=== PATIENT | male | born 1995 | race African-American/Black ===

== ENCOUNTER 2016-10-20 22:56 | Emergency (ER) | payer OTHER ==
--- NOTE | 2016-10-20 23:06 | ED Physician Documentation ---
PD HPI UPPER EXT INJURY - Stated complaint Stated Complaint: LT WRIST INJURY - History obtained from History obtained from: Patient - History of Present Illness Location: Left, Wrist Type of injury: Fall (playing basketball, dunked a ball and then fell backward when he tripped landing the jump. Injury to the wrist; denies other injury.) Where injury occurred: Other (he is at a camp or such for the week here at [facility].) Timing - details: Abrupt onset, Still present Improved by: Rest Worsened by: Moving, Palpating Associated symptoms: Swelling. No: Weakness, Numbness Similar symptoms before: Has not had sx before Recently seen: Not recently seen Review of Systems GI: denies: Nausea, Vomiting Skin: denies: Abrasion (s), Laceration (s) Neurologic: denies: Focal weakness (but wrist hurts with finger movement so not doing it), Numbness, Headache, Head injury PD PAST MEDICAL HISTORY - Past Medical History Cardiovascular: None Respiratory: None Neuro: None Endocrine/Autoimmune: None Musculoskeletal: None - Present Medications Home Medications: Ambulatory Orders Medication Instructions Recorded Confirmed Hydrocodone/Acetaminophen [Branford 1 each PO Q6H PRN #20 tablet 10/21/16 5-325 Tablet] - Allergies Allergies/Adverse Reactions: Allergies Allergy/AdvReac Type Severity Reaction Status Date / Time No Known Drug Allergies Allergy Verified 10/20/16 23:22 PD ED PE NORMAL - Vitals Vital signs reviewed: Yes - General General: Alert and oriented X 3, No acute distress, Well developed/nourished - HEENT HEENT: Atraumatic - Neck Neck: Supple, no meningeal sign, No bony TTP - Respiratory Respiratory: Other (no chestwall tenderness) - Abdomen Abdomen: Soft, Non tender - Back Back: No spinal TTP - Derm Derm: Normal color, Warm and dry - Extremities Extremities: Other (left wrist with tenderness, decreased ROM due to pain, and some swelling dorsal distal rad/ulnar area. Normal sensation, color, cap refill in fingers. Able to move fingers, but it does cause pain in wrist. ) - Neuro Neuro: Alert and oriented X 3, No motor deficit, No sensory deficit, Normal speech Results - Vitals Vitals: Vital Signs - 24 hr 10/20/16 10/21/16 23:00 00:45 Temperature 37.2 C 37.0 C Heart Rate 111 H 96 Respiratory 20 15 Rate Blood Pressure 136/109 H 125/67 O2 Saturation 100 99 Oxygen O2 Source Room air - Rads (name of study) Wrist xray Radiology: Prelim report reviewed, EMP read contemporaneously Procedures - Splint (location) left wrist Splint applied by: Tech Type of splint: Fiberglass, Sugar tong Other: Patient tolerated well, No complications, Neurovascular intact, Sling provided PD MEDICAL DECISION MAKING - ED course Complexity details: reviewed results, considered differential (fracture with just 10-15 degree dorsal tilt and some impaction. Does not need immediate reduction and might be close enough for healing. Splinted now and to f/u with Ortho. He is at camp on [facility] through end of week and no PMD in [place]. Given Ortho referral for here, to see if can get cast/treatment in 3 days. Hematoma block with 5 ml Marcaine done with reasonable improvement in pain. Oral meds given too. ), d/w patient Departure - Departure Disposition: Home, Self Care Clinical Impression: Colles' fracture of left radius Qualifiers: Encounter type: initial encounter Fracture type: closed Qualified Code(s): S52.532A - Colles' fracture of left radius, initial encounter for closed fracture Condition: Stable Record reviewed to determine appropriate education?: Yes Instructions: ED Fx Colles Wrist No Redu Requ Follow-Up: Denilson Melara MD [Provider Admit Priv/Credential] - Prescriptions: Hydrocodone/Acetaminophen [Branford 5-325 Tablet] 1 each PO Q6H PRN #20 tablet PRN Reason: Pain Comments: Splint for the wrist and elevate/ice it often. Sling to help support the arm. Ibuprofen or Naproxen twice daily for a week. Add Tylenol or hydrocodone as needed for pain. Follow up with Orthopedics later this week or next week, call tomorrow for appt. The position of the fracture I believe is close enough for healing, but can be manipulated into position by Ortho at time of changing to a cast when the swelling is down, if they feel it wants to be less angled. Discharge Date/Time: 10/21/16 00:47
[2016-10-20] MEDS ORDERED: BUPIVACAINE 0.5% PF 30 ML VIAL SUBQ STA (23:20)
[2016-10-20] MEDS ORDERED: HYDROcod/ACET 5/325 Prepack 6 PO ONE ×2 (23:20→23:34)
[2016-10-20] MEDS ORDERED: IBUPROFEN 600 MG TABLET PO STA (23:20)
[2016-10-20] MEDS ORDERED: HYDROcod/ACETAM 5/325 MG TABLET PO STA (23:20)
[2016-10-20] MEDS ORDERED: HYDROcod/ACETAM 5/325 MG TABLET ONE (23:34)
[2016-10-20] MEDS ORDERED: IBUPROFEN 600 MG TABLET PO ONE (23:34)
[2016-10-20] MEDS ORDERED: BUPIVACAINE 0.5% PF 30 ML VIAL ONE (23:34)
--- NOTE | 2016-10-20 23:58 | XRAY Preliminary Report ---
Exam: XR Wrist 4 View LT IMPRESSION: 1. Comminuted fracture of the distal radial metaphysis with no significant angulation. 2. Small chip fractures from the ulnar styloid. [facility] SITE ID: [id number]
--- NOTE | 2016-10-21 | XRAY Report ---
EXAM: LEFT WRIST RADIOGRAPHY EXAM DATE: 10/20/2016 11:46 PM. CLINICAL HISTORY: Pain after injury. COMPARISON: None. TECHNIQUE: 4 views. FINDINGS: Bones: Comminuted fracture of the distal radial metaphysis. No significant angulation of the distal r adial articular surface. Probable small chip fractures from the ulnar styloid. Joints: No dislocation seen. Joint spaces appear intact. Soft Tissues: Soft tissue swelling. IMPRESSION: 1. Comminuted fracture of the distal radial metaphysis with no significant angulation. 2. Small chip fractures from the ulnar styloid. [facility] Referring Provider Line: [phone] SITE ID: [id number]
[2016-10-21 00:46] VITALS: BP 125/67
== END 2016-10-21 00:47 | disposition home or self-care (01) ==
LOC: ED 22:56
DX: S52.532A Colles' fracture of left radius, initial encounter for closed fracture (principal); S52.612A Displaced fracture of left ulna styloid process, initial encounter for closed fracture; W01.0XXA Fall on same level from slipping, tripping and stumbling without subsequent striking against object, initial encounter; Y93.67 Activity, basketball; Y92.310 Basketball court as the place of occurrence of the external cause
CPT/HCPCS: 29125; 64450; 73110; 99283; A9270